=== PATIENT | female | born 1995 | race Caucasian/White ===

== ENCOUNTER 2016-05-23 19:10 | Emergency (ER) | payer MEDICAID, OTHER ==
[~2016-05-23] VITALS: Ht 160 cm; Wt 83.7 kg
[~2016-05-23 19:10] MED LIST: CYCL-36 PO; MOBI15TA PO; [UNRECOGNIZED DRUG - CODE] PO
[2016-05-23 19:15] VITALS: BP 118/76; PULSE 84; RESP 16; TEMP 98.3; O2SAT 97
[2016-05-23] MEDS ORDERED: birth control pills (20:35)
--- NOTE | 2016-05-23 20:53 | PD ---
HPI . left sided back/neck pain since this AM Chief Complaint: Musculoskeletal Complaint Time Seen by Provider: 20:52 Travel History International Travel<30 days: No Contact w/Intl Traveler<30days: No Traveled to known affect area: No History of Present Illness HPI 20 yr old female here with c/o neck/back pain since this am. Patient states she woke up and had pain in the left side of her neck/upper back. She denies any injury. She says she thought it was a muscle so tried to wait it out, however the pain is still there. Upon examination, she has muscle strain findings and we discuss muscle relaxers. She tells me they don't work and make her groggy. She says flexeril makes her the most tired, but robaxin is tolerable. She denies any injury or other symptoms. PFSH Past Medical History Hx Anticoagulant Therapy: No Cardiovascular Problems: No Chemotherapy: No Cerebrovascular Accident: No Diabetes: No Diminished Hearing: No Respiratory: No Immunizations Current: Yes ?: Not Past Surgical History Hysterectomy: No Social History Alcohol Use: Yes (RARELY) Tobacco Use: No Substance Use: No Allergies-Medications (Allergen,Severity, Reaction): Coded Allergies: No Known Allergies (Verified , 05/23/16) Reported Meds & Prescriptions Reported Meds & Active Scripts Active Robaxin (Methocarbamol) 500 Mg Tab 500 Mg PO TID Reported [ control pills] Review of Systems General / Constitutional: No: Fever Eyes: No: Visual changes HENT: Positive: Neck Stiffness, No: Headaches Cardiovascular: No: Chest Pain or Discomfort Respiratory: No: Shortness of Breath Gastrointestinal: No: Abdominal Pain Genitourinary: No: Dysuria Musculoskeletal: Positive: Pain (left side neck/upper back) Skin: No Rash Neurologic: No: Weakness Psychiatric: No: Depression Endocrine: No: Polydipsia Hematologic/Lymphatic: No: Easy Bruising Physical Exam Narrative GENERAL: AAO x 3, no acute distress, Well-nourished, well-developed patient. SKIN: Warm and dry. No visible rashes or bruising. HEAD: Normocephalic and atraumatic. EYES: No scleral icterus. No injection or drainage. ENT: No nasal drainage noted. Mucous membranes pink. Airway patent. NECK: Supple, trachea midline. No JVD. Tenderness along the left side of the trapezius. Range of motion is normal. CARDIOVASCULAR: Regular rate and rhythm without murmurs, gallops, or rubs. RESPIRATORY: Breath sounds equal bilaterally. No accessory muscle use. No rhonchi or rales. GASTROINTESTINAL: Abdomen soft, non-tender, nondistended. EXTREMITIES: No cyanosis or edema. Muscle strength in upper extremities is 5/5. BACK: Nontender without obvious deformity. No CVA tenderness. PSYCH: AAO x 3, normal affect. Data Data Last Documented VS Vital Signs Date Time Temp Pulse Resp B/P Pulse Ox O2 Delivery O2 Flow Rate FiO2 05/23/16 19:15 98.3 84 16 118/76 97 MDM Medical Decision Making Medical Screen Exam Complete: Yes Emergency Medical Condition: Yes Medical Record Reviewed: Yes Differential Diagnosis muscle strain, less likely c spine fracture, less likely cervical radiculopathy Narrative Course 20 yr old female here with c/o neck/back pain since this am. Patient states she woke up and had pain in the left side of her neck/upper back. She denies any injury. She says she thought it was a muscle so tried to wait it out, however the pain is still there. Upon examination, she has muscle strain findings and we discuss muscle relaxers. She tells me they don't work and make her groggy. She says flexeril makes her the most tired, but robaxin is tolerable. She denies any injury or other symptoms. Patient seen and examined. She has muscle tenderness along the left side of the trapezius. There are no other abnormal findings. I recommend muscle relaxers. She seems to want something stronger. I advised her the muscle relaxers is what I can prescribe. She tells me she would prefer the robaxin. I advised f/u with PCP Diagnosis Primary Impression: Muscle strain Patient Instructions: General Instructions Additional Instructions: Rest the affected area as much as possible. Ice this area for 15-20 minutes at a time. You can do this every hour or as much as tolerated. Use ibuprofen as needed for pain and inflammation. Muscle relaxers can cause drowsiness. Do not drive, swim or operate heavy machinery while using these medications. Med/Other Pt SpecificInfo: Prescription(s) given Scripts Methocarbamol (Robaxin)500 Mg [id number] Mg PO TID #21 TAB Ref 0 Prov:Soontharothai,Rewadee MD 05/23/16 Disposition: 01 DISCHARGE HOME Condition: Stable Reena Mejia May 23, 2016 20:52
[2016-05-23] MEDS ORDERED: ROBA500T PO (20:55)
== END 2016-05-23 21:08 | disposition home or self-care (01) ==
LOC: PHED 19:10 → PHEFT 21:08
DX: S16.1XXA Strain of muscle, fascia and tendon at neck level, initial encounter (principal); S29.012A Strain of muscle and tendon of back wall of thorax, initial encounter; X58.XXXA Exposure to other specified factors, initial encounter
CPT/HCPCS: 99283